=== PATIENT | male | born 1980 | race Caucasian/White ===

== ENCOUNTER 2020-09-28 10:02 | Inpatient (IN) | payer OTHER ==
[2020-09-28 10:32] VITALS: BMI 21.3
[2020-09-28] MEDS ORDERED: MAG HYDROX/AL HYDROX/SIMETH 30 ML UNIT-DOSE CUP PO PRN (11:47)
[2020-09-28] MEDS ORDERED: MENTHOL/PHENOL 1 EACH UD MM PRN (11:47)
[2020-09-28] MEDS ORDERED: IBUPROFEN 400 MG TABLET (FP) PO PRN (11:47)
[2020-09-28] MEDS ORDERED: ONDANSETRON *ODT* 4 MG TABLET SL PRN (11:47)
[2020-09-28] MEDS ORDERED: NICOTINE POLACRILEX 2 MG GUM BUC PRN (11:47)
[2020-09-28] MEDS ORDERED: BISMUTH SUBSALICYLATE 262 MG/15 ML BTL PO PRN (11:47)
[2020-09-28] MEDS ORDERED: LORazepam 1 MG TABLET PO PRN (11:47)
[2020-09-28] MEDS ORDERED: MAGNESIUM HYDROX 2400MG/30ML ORAL SUSPENSION 30 ML CUP PO PRN (11:47)
[2020-09-28] MEDS ORDERED: MAGNESIUM CITRATE 300 ML BOTTLE PO PRN (11:47)
[2020-09-28] MEDS ORDERED: ACETAMINOPHEN 325 MG TABLET (FP) PO PRN ×2 (11:47)
[2020-09-28] MEDS ORDERED: METHOCARBAMOL 500 MG TABLET PO PRN (11:47)
[2020-09-28] MEDS: NICOTINE 14 MG/24 HOURS TOPICAL PATCH TD SCH (12:43)
[2020-09-28] MEDS ORDERED: MELATONIN 5 MG TABLETS PO PRN (13:54)
[2020-09-28] MEDS ORDERED: PATIENT'S OWN MEDICATION (NON-FORMULARY) (Gabapentin [Neurontin] 600 MG Tablet) PO SCH (14:00)
[2020-09-28] MEDS: GABAPENTIN 400 MG CAPSULE PO SCH ×2 (14:24→22:14)
[2020-09-28] MEDS: hydrOXYzine PAMOATE 25 MG CAPSULE (FP) PO SCH ×3 (14:36→22:14)
[2020-09-28 14:47] LABS: HEMOGLOBIN 14.5 GM/dL (11.7-16.9); MCH 31.7 pg (25.7-33.7); MCHC 33.9 g/dl (32.0-35.9); MEAN CELL VOLUME 93.7 fl (80-96); MEAN PLT VOLUME 8.8 fl (7.5-11.1); PLATELET COUNT 265 K/MM3 (134-434); RBC 4.58 M/mm3 (4.00-5.60); RDW 13.2 % (11.9-15.9); WHITE BLOOD COUNT 6.3 K/mm3 (4.0-10.0)
[2020-09-28 14:51] LABS: POTASSIUM 4.9 mmol/L (3.5-5.1)
[2020-09-28 14:53] LABS: ALBUMIN 4.2 g/dl (3.4-5.0); BLOOD UREA NITROGEN 17.8 mg/dL (7-18); CALCIUM 9.5 mg/dL (8.5-10.1)
[2020-09-28 14:56] LABS: CREATININE 1.1 mg/dL (0.55-1.3)
[2020-09-28 14:58] LABS: BILIRUBIN,TOTAL 0.3 mg/dL (0.2-1); TOT PROT 7.2 g/dl (6.4-8.2)
[2020-09-28 15:44] LABS: SYPHILIS W/ RPR CONF NON-REACTIVE (NONREACTIVE)
[2020-09-28 15:47] LABS: HIV INTERPRETATION NEGATIVE (NEGATIVE)
[2020-09-28] MEDS: LORazepam 2 MG TABLET PO SCH ×2 (17:21→22:14)
[2020-09-28] MEDS ORDERED: MELATONIN 5 MG TABLETS PO SCH (22:00)
[2020-09-28] MEDS: THIAMINE HCL 100 MG TABLET (FP) PO SCH (22:14)
[2020-09-29] MEDS: hydrOXYzine PAMOATE 25 MG CAPSULE (FP) PO SCH ×5 (07:32→23:30)
[2020-09-29] MEDS: LORazepam 2 MG TABLET PO SCH ×4 (07:32→23:30)
[2020-09-29] MEDS: GABAPENTIN 400 MG CAPSULE PO SCH ×3 (07:32→23:30)
[2020-09-29] MEDS ORDERED: METHADONE HCL 10 MG TABLET ONE (08:57)
[2020-09-29] MEDS ORDERED: METHADONE HCL 40 MG DISPERSABLE TABLET ONE (08:59)
[2020-09-29] MEDS ORDERED: METHADONE HCL 40 MG DISPERSABLE TABLET PO SCH (10:00)
[2020-09-29] MEDS: METHADONE 80 MG, METHADONE 10 MG PO SCH (10:32)
[2020-09-29] MEDS: NICOTINE 14 MG/24 HOURS TOPICAL PATCH TD SCH (10:33)
[2020-09-29] MEDS: PRENATAL VITAMINS W/ FOLIC ACID TABLET (FP) PO SCH (11:02)
[2020-09-29] MEDS ORDERED: MASKS NR ONE (20:33)
[2020-09-29] MEDS: THIAMINE HCL 100 MG TABLET (FP) PO SCH (23:30)
[2020-09-30] MEDS: LORazepam 1 MG TABLET PO SCH ×4 (07:26→22:08)
[2020-09-30] MEDS: GABAPENTIN 400 MG CAPSULE PO SCH ×3 (07:26→22:08)
[2020-09-30] MEDS: hydrOXYzine PAMOATE 25 MG CAPSULE (FP) PO SCH ×5 (07:27→22:08)
[2020-09-30] MEDS ORDERED: METHADONE HCL 10 MG TABLET ONE (09:28)
[2020-09-30] MEDS ORDERED: METHADONE HCL 40 MG DISPERSABLE TABLET ONE (09:30)
[2020-09-30] MEDS: METHADONE 80 MG, METHADONE 10 MG PO SCH (09:31)
[2020-09-30] MEDS: NICOTINE 14 MG/24 HOURS TOPICAL PATCH TD SCH (10:25)
[2020-09-30] MEDS: PRENATAL VITAMINS W/ FOLIC ACID TABLET (FP) PO SCH (10:25)
[2020-09-30] MEDS: THIAMINE HCL 100 MG TABLET (FP) PO SCH (22:08)
[2020-10-01] MEDS ORDERED: LORazepam 0.5 MG TABLET PO PRN
[2020-10-01] MEDS ORDERED: METHADONE HCL 10 MG TABLET ONE (04:09)
[2020-10-01] MEDS ORDERED: METHADONE HCL 40 MG DISPERSABLE TABLET ONE (04:09)
[2020-10-01] MEDS: METHADONE 80 MG, METHADONE 10 MG PO SCH (05:35)
[2020-10-01] MEDS: hydrOXYzine PAMOATE 25 MG CAPSULE (FP) PO SCH ×5 (05:35→22:02)
[2020-10-01] MEDS: GABAPENTIN 400 MG CAPSULE PO SCH ×3 (05:35→22:02)
[2020-10-01] MEDS: LORazepam 0.5 MG TABLET PO SCH ×4 (05:36→22:02)
[2020-10-01] MEDS: PRENATAL VITAMINS W/ FOLIC ACID TABLET (FP) PO SCH (10:05)
[2020-10-01] MEDS: NICOTINE 14 MG/24 HOURS TOPICAL PATCH TD SCH (10:05)
[2020-10-01] MEDS: THIAMINE HCL 100 MG TABLET (FP) PO SCH (22:02)
[2020-10-02] MEDS ORDERED: METHADONE HCL 10 MG TABLET ONE (03:21)
[2020-10-02] MEDS ORDERED: METHADONE HCL 40 MG DISPERSABLE TABLET ONE (03:21)
[2020-10-02] MEDS ORDERED: LORazepam 0.5 MG TABLET PO ONE (05:00)
[2020-10-02] MEDS: METHADONE 80 MG, METHADONE 10 MG PO SCH (06:48)
[2020-10-02] MEDS: GABAPENTIN 400 MG CAPSULE PO SCH ×2 (06:49→13:48)
[2020-10-02] MEDS: hydrOXYzine PAMOATE 25 MG CAPSULE (FP) PO SCH ×4 (06:49→17:40)
[2020-10-02] MEDS: NICOTINE 14 MG/24 HOURS TOPICAL PATCH TD SCH (10:21)
[2020-10-02] MEDS: PRENATAL VITAMINS W/ FOLIC ACID TABLET (FP) PO SCH (10:21)
[2020-10-02 17:26] VITALS: BP 117/63; PULSE 58; TEMP 97.5
== END 2020-10-02 18:03 | disposition other institution (70) | DRG 773 ==
LOC: YASAS 10:02 → Y6N 11:15
PROVIDERS: ADMIT Allergy & Immunology; ATTEND Allergy & Immunology
PROC: HZ2ZZZZ Detoxification Services for Substance Abuse Treatment (ICD-10-PCS; principal; 2020-09-28)
DX: F10.230 Alcohol dependence with withdrawal, uncomplicated (principal); F11.20 Opioid dependence, uncomplicated; F14.20 Cocaine dependence, uncomplicated; F12.20 Cannabis dependence, uncomplicated; F17.210 Nicotine dependence, cigarettes, uncomplicated; F90.9 Attention-deficit hyperactivity disorder, unspecified type; F19.280 Other psychoactive substance dependence with psychoactive substance-induced anxiety disorder; F19.282 Other psychoactive substance dependence with psychoactive substance-induced sleep disorder; F42.4 Excoriation (skin-picking) disorder; M54.5 Low back pain; G89.29 Other chronic pain
CPT/HCPCS: 36415; 80053; 85027; 86780; 87389; 93005; 93010; C9803; U0003

== ENCOUNTER 2020-10-02 18:12 | Inpatient (IN) | payer OTHER ==
[2020-10-02] MEDS ORDERED: MAG HYDROX/AL HYDROX/SIMETH 30 ML UNIT-DOSE CUP PO PRN (20:16)
[2020-10-02] MEDS ORDERED: NICOTINE POLACRILEX 2 MG GUM BUC PRN (20:16)
[2020-10-02] MEDS ORDERED: IBUPROFEN 400 MG TABLET (FP) PO PRN (20:16)
[2020-10-02] MEDS ORDERED: LOPERAMIDE HCL 2 MG CAPSULE PO PRN (20:16)
[2020-10-02] MEDS ORDERED: hydrOXYzine PAMOATE 25 MG CAPSULE (FP) PO PRN (20:16)
[2020-10-02] MEDS ORDERED: MENTHOL/PHENOL 1 EACH UD MM PRN (20:16)
[2020-10-02] MEDS ORDERED: P-EPHED 60MG/TRIPROLIDI 2.5MG TABLET PO PRN (20:16)
[2020-10-02] MEDS ORDERED: ACETAMINOPHEN 325 MG TABLET (FP) PO PRN (20:16)
[2020-10-02] MEDS ORDERED: MAGNESIUM CITRATE 300 ML BOTTLE PO PRN (20:16)
[2020-10-02] MEDS ORDERED: guaiFENesin 200 MG/10 ML 10 ML UNIT-DOSE CUPS PO PRN (20:16)
[2020-10-02] MEDS ORDERED: MAGNESIUM HYDROX 2400MG/30ML ORAL SUSPENSION 30 ML CUP PO PRN (20:16)
[2020-10-02] MEDS ORDERED: MELATONIN 5 MG TABLETS PO PRN (22:00)
[2020-10-02] MEDS ORDERED: THIAMINE HCL 100 MG TABLET (FP) PO SCH (22:00)
[2020-10-02] MEDS ORDERED: MELATONIN 5 MG TABLETS PO SCH (22:00)
[2020-10-03] MEDS ORDERED: METHADONE HCL 40 MG DISPERSABLE TABLET ONE (04:54)
[2020-10-03] MEDS ORDERED: METHADONE HCL 10 MG TABLET ONE (04:55)
[2020-10-03] MEDS ORDERED: METHADONE 80 MG, METHADONE 10 MG PO SCH (06:00)
[2020-10-03 08:39] VITALS: BP 129/65; PULSE 56; TEMP 97.1
[2020-10-03] MEDS ORDERED: NICOTINE 14 MG/24 HOURS TOPICAL PATCH TD SCH (10:00)
[2020-10-03] MEDS ORDERED: METHADONE HCL 40 MG DISPERSABLE TABLET PO SCH (10:00)
[2020-10-03] MEDS ORDERED: PRENATAL VITAMINS W/ FOLIC ACID TABLET (FP) PO SCH (10:00)
== END 2020-10-03 10:30 | disposition left against medical advice (07) | DRG 770 ==
LOC: YASAS 18:12 → Y3W 18:13
PROVIDERS: ADMIT Allergy & Immunology; ATTEND Allergy & Immunology
PROC: HZ42ZZZ Group Counseling for Substance Abuse Treatment, Cognitive-Behavioral (ICD-10-PCS; principal; 2020-10-02)
DX: F10.20 Alcohol dependence, uncomplicated (principal); F11.20 Opioid dependence, uncomplicated; F14.20 Cocaine dependence, uncomplicated; F12.20 Cannabis dependence, uncomplicated; F17.210 Nicotine dependence, cigarettes, uncomplicated; F41.1 Generalized anxiety disorder; M54.5 Low back pain; G89.29 Other chronic pain

== ENCOUNTER 2021-04-28 22:56 | Inpatient (IN) | payer OTHER ==
[2021-04-28 20:24] VITALS: BMI 21.4
[~2021-04-28 22:56] MED LIST: ACETAMINOPHEN 325 MG TABLET (FP) PO PRN; IBUPROFEN 400 MG TABLET (FP) PO PRN; LOPERAMIDE HCL 2 MG CAPSULE PO PRN; MAG HYDROX/AL HYDROX/SIMETH 30 ML UNIT-DOSE CUP PO PRN; MAGNESIUM CITRATE 300 ML BOTTLE PO PRN; MAGNESIUM HYDROX 2400MG/30ML ORAL SUSPENSION 30 ML CUP PO PRN; P-EPHED 60MG/TRIPROLIDI 2.5MG TABLET PO PRN; guaiFENesin 200 MG/10 ML 10 ML UNIT-DOSE CUPS PO PRN
[2021-04-29] MEDS: THIAMINE HCL 100 MG TABLET (FP) PO SCH ×2 (02:00→21:40)
[2021-04-29] MEDS: MELATONIN 5 MG TABLETS PO SCH ×2 (02:00→21:06)
[2021-04-29] MEDS: hydrOXYzine PAMOATE 25 MG CAPSULE (FP) PO SCH ×6 (02:00→21:06)
[2021-04-29] MEDS ORDERED: methaDONE HCL 10 MG TABLET PO SCH (09:30)
[2021-04-29] MEDS: PRENATAL VITAMINS W/ FOLIC ACID TABLET (FP) PO SCH (09:38)
[2021-04-29] MEDS: NICOTINE 7 MG/24 HOURS TOPICAL PATCH TD SCH (09:38)
[2021-04-29] MEDS ORDERED: methaDONE HCL 40 MG DISPERSABLE TABLET ONE (10:16)
[2021-04-29] MEDS ORDERED: methaDONE HCL 10 MG TABLET ONE (10:16)
[2021-04-29] MEDS: methaDONE 80 MG, methaDONE 10 MG PO SCH (10:28)
[2021-04-29] MEDS ORDERED: methaDONE 40 MG, methaDONE 30 MG PO SCH (10:30)
[2021-04-29 13:33] LABS: PH,URINE 6.5 (5.0-8.0); URINE APPEARANCE CLEAR; URINE BILIRUBIN NEGATIVE (NEGATIVE); URINE COLOR YELLOW; URINE GLUCOSE (UA) NEGATIVE (NEGATIVE); URINE KETONE NEGATIVE (NEGATIVE); URINE LEUK ESTERASE NEGATIVE (NEGATIVE); URINE NITRITE NEGATIVE (NEGATIVE); URINE PROTEIN NEGATIVE (NEGATIVE); URINE UROBILINOGEN 0.2 mg/dL (0.2-1.0)
[2021-04-29] MEDS ORDERED: MASKS NR ONE (17:55)
[2021-04-29] MEDS: GABAPENTIN 300 MG CAPSULE PO SCH (21:05)
[2021-04-30] MEDS ORDERED: methaDONE HCL 40 MG DISPERSABLE TABLET ONE (03:13)
[2021-04-30] MEDS ORDERED: methaDONE HCL 10 MG TABLET ONE (03:14)
[2021-04-30] MEDS: methaDONE 80 MG, methaDONE 10 MG PO SCH (06:42)
[2021-04-30] MEDS: hydrOXYzine PAMOATE 25 MG CAPSULE (FP) PO SCH ×5 (06:43→21:13)
[2021-04-30] MEDS: GABAPENTIN 300 MG CAPSULE PO SCH ×3 (06:43→21:12)
[2021-04-30] MEDS: NICOTINE POLACRILEX 2 MG GUM BC PRN (08:22)
[2021-04-30] MEDS: PRENATAL VITAMINS W/ FOLIC ACID TABLET (FP) PO SCH (10:00)
[2021-04-30] MEDS: NICOTINE 7 MG/24 HOURS TOPICAL PATCH TD SCH (10:00)
[2021-04-30 15:00] LABS: HEMATOCRIT 38.4 % (35.4-49); MCH 31.7 pg (25.7-33.7); MCHC 33.8 g/dl (32.0-35.9); MEAN CELL VOLUME 93.8 fl (80-96); MEAN PLT VOLUME 8.1 fl (7.5-11.1); PLATELET COUNT 346 10^3/uL (134-434); RDW 13.3 % (11.9-15.9); WHITE BLOOD COUNT 5.7 K/mm3 (4.0-10.0)
[2021-04-30 15:09] LABS: ALBUMIN 3.1 g/dl (3.4-5.0); BLOOD UREA NITROGEN 20.5 mg/dL (7-18)
[2021-04-30 15:13] LABS: CREATININE 0.9 mg/dL (0.55-1.3)
[2021-04-30 15:14] LABS: BILIRUBIN,TOTAL 0.2 mg/dL (0.2-1); TOT PROT 6.4 g/dl (6.4-8.2)
[2021-04-30] MEDS: THIAMINE HCL 100 MG TABLET (FP) PO SCH (21:12)
[2021-04-30] MEDS: MELATONIN 5 MG TABLETS PO SCH (21:13)
[2021-05-01] MEDS ORDERED: methaDONE HCL 40 MG DISPERSABLE TABLET ONE (03:12)
[2021-05-01] MEDS ORDERED: methaDONE HCL 10 MG TABLET ONE (03:13)
[2021-05-01] MEDS: methaDONE 80 MG, methaDONE 10 MG PO SCH (06:52)
[2021-05-01] MEDS: hydrOXYzine PAMOATE 25 MG CAPSULE (FP) PO SCH ×5 (06:52→21:40)
[2021-05-01] MEDS: GABAPENTIN 300 MG CAPSULE PO SCH ×3 (06:52→21:39)
[2021-05-01] MEDS: PRENATAL VITAMINS W/ FOLIC ACID TABLET (FP) PO SCH (09:58)
[2021-05-01] MEDS: NICOTINE 7 MG/24 HOURS TOPICAL PATCH TD SCH (09:59)
[2021-05-01] MEDS: METHOCARBAMOL 500 MG TABLET PO SCH ×2 (14:42→21:40)
[2021-05-01] MEDS: THIAMINE HCL 100 MG TABLET (FP) PO SCH (21:40)
[2021-05-01] MEDS: MELATONIN 5 MG TABLETS PO SCH (21:40)
[2021-05-02] MEDS ORDERED: methaDONE HCL 10 MG TABLET ONE (03:52)
[2021-05-02] MEDS ORDERED: methaDONE HCL 40 MG DISPERSABLE TABLET ONE (03:52)
[2021-05-02] MEDS: hydrOXYzine PAMOATE 25 MG CAPSULE (FP) PO SCH ×5 (06:35→21:06)
[2021-05-02] MEDS: METHOCARBAMOL 500 MG TABLET PO SCH ×3 (06:36→21:06)
[2021-05-02] MEDS: GABAPENTIN 300 MG CAPSULE PO SCH ×3 (06:36→21:06)
[2021-05-02] MEDS: methaDONE 80 MG, methaDONE 10 MG PO SCH (06:37)
[2021-05-02] MEDS: NICOTINE 7 MG/24 HOURS TOPICAL PATCH TD SCH (10:20)
[2021-05-02] MEDS: PRENATAL VITAMINS W/ FOLIC ACID TABLET (FP) PO SCH (10:20)
[2021-05-02] MEDS: LIDOCAINE 5% TOPICAL PATCH TP SCH (15:39)
[2021-05-02] MEDS: MELATONIN 5 MG TABLETS PO SCH (21:06)
[2021-05-02] MEDS: LIDOCAINE PATCH REMOVAL MC SCH (21:07)
[2021-05-02] MEDS: THIAMINE HCL 100 MG TABLET (FP) PO SCH (21:07)
[2021-05-03] MEDS ORDERED: methaDONE HCL 40 MG DISPERSABLE TABLET ONE (03:10)
[2021-05-03] MEDS ORDERED: methaDONE HCL 10 MG TABLET ONE (03:11)
[2021-05-03] MEDS: methaDONE 80 MG, methaDONE 10 MG PO SCH (07:00)
[2021-05-03] MEDS: GABAPENTIN 300 MG CAPSULE PO SCH ×3 (07:00→21:34)
[2021-05-03] MEDS: METHOCARBAMOL 500 MG TABLET PO SCH ×3 (07:00→21:34)
[2021-05-03] MEDS: hydrOXYzine PAMOATE 25 MG CAPSULE (FP) PO SCH ×5 (07:00→21:34)
[2021-05-03] MEDS: NICOTINE 7 MG/24 HOURS TOPICAL PATCH TD SCH (10:06)
[2021-05-03] MEDS: LIDOCAINE 5% TOPICAL PATCH TP SCH (10:06)
[2021-05-03] MEDS: PRENATAL VITAMINS W/ FOLIC ACID TABLET (FP) PO SCH (10:07)
[2021-05-03] MEDS: MELATONIN 5 MG TABLETS PO SCH (21:34)
[2021-05-03] MEDS: LIDOCAINE PATCH REMOVAL MC SCH (21:35)
[2021-05-03] MEDS: THIAMINE HCL 100 MG TABLET (FP) PO SCH (21:35)
[2021-05-04] MEDS ORDERED: methaDONE HCL 40 MG DISPERSABLE TABLET ONE (03:43)
[2021-05-04] MEDS ORDERED: methaDONE HCL 10 MG TABLET ONE (03:43)
[2021-05-04] MEDS: methaDONE 80 MG, methaDONE 10 MG PO SCH (06:31)
[2021-05-04] MEDS: METHOCARBAMOL 500 MG TABLET PO SCH ×3 (06:31→21:03)
[2021-05-04] MEDS: GABAPENTIN 300 MG CAPSULE PO SCH ×3 (06:31→21:03)
[2021-05-04] MEDS: hydrOXYzine PAMOATE 25 MG CAPSULE (FP) PO SCH ×5 (06:32→21:02)
[2021-05-04] MEDS: PRENATAL VITAMINS W/ FOLIC ACID TABLET (FP) PO SCH (09:52)
[2021-05-04] MEDS: NICOTINE POLACRILEX 2 MG GUM BC PRN (09:53)
[2021-05-04] MEDS: LIDOCAINE 5% TOPICAL PATCH TP SCH (09:53)
[2021-05-04] MEDS: NICOTINE 7 MG/24 HOURS TOPICAL PATCH TD SCH (09:53)
[2021-05-04] MEDS: THIAMINE HCL 100 MG TABLET (FP) PO SCH (21:02)
[2021-05-04] MEDS: MELATONIN 5 MG TABLETS PO SCH (21:02)
[2021-05-04] MEDS: LIDOCAINE PATCH REMOVAL MC SCH (21:03)
[2021-05-05] MEDS ORDERED: methaDONE HCL 40 MG DISPERSABLE TABLET ONE (03:16)
[2021-05-05] MEDS ORDERED: methaDONE HCL 10 MG TABLET ONE (03:17)
[2021-05-05] MEDS: methaDONE 80 MG, methaDONE 10 MG PO SCH (06:19)
[2021-05-05] MEDS: hydrOXYzine PAMOATE 25 MG CAPSULE (FP) PO SCH ×5 (06:19→21:30)
[2021-05-05] MEDS: GABAPENTIN 300 MG CAPSULE PO SCH ×3 (06:19→21:30)
[2021-05-05] MEDS: METHOCARBAMOL 500 MG TABLET PO SCH ×3 (06:19→21:30)
[2021-05-05] MEDS: NICOTINE 7 MG/24 HOURS TOPICAL PATCH TD SCH (09:53)
[2021-05-05] MEDS: LIDOCAINE 5% TOPICAL PATCH TP SCH (09:53)
[2021-05-05] MEDS: PRENATAL VITAMINS W/ FOLIC ACID TABLET (FP) PO SCH (09:53)
[2021-05-05] MEDS: MELATONIN 5 MG TABLETS PO SCH (21:30)
[2021-05-05] MEDS: THIAMINE HCL 100 MG TABLET (FP) PO SCH (21:30)
[2021-05-05] MEDS: LIDOCAINE PATCH REMOVAL MC SCH (21:30)
[2021-05-05] MEDS: NICOTINE POLACRILEX 2 MG GUM BC PRN (21:31)
[2021-05-06] MEDS ORDERED: methaDONE HCL 40 MG DISPERSABLE TABLET ONE (03:03)
[2021-05-06] MEDS ORDERED: methaDONE HCL 10 MG TABLET ONE (03:04)
[2021-05-06] MEDS: methaDONE 80 MG, methaDONE 10 MG PO SCH (06:38)
[2021-05-06] MEDS: METHOCARBAMOL 500 MG TABLET PO SCH ×3 (06:38→21:10)
[2021-05-06] MEDS: GABAPENTIN 300 MG CAPSULE PO SCH ×3 (06:38→21:10)
[2021-05-06] MEDS: hydrOXYzine PAMOATE 25 MG CAPSULE (FP) PO SCH ×5 (06:39→21:10)
[2021-05-06] MEDS: NICOTINE 7 MG/24 HOURS TOPICAL PATCH TD SCH (09:27)
[2021-05-06] MEDS: PRENATAL VITAMINS W/ FOLIC ACID TABLET (FP) PO SCH (09:27)
[2021-05-06] MEDS: LIDOCAINE 5% TOPICAL PATCH TP SCH (09:27)
[2021-05-06] MEDS: NICOTINE POLACRILEX 2 MG GUM BC PRN (09:28)
[2021-05-06] MEDS: MELATONIN 5 MG TABLETS PO SCH (21:10)
[2021-05-06] MEDS: THIAMINE HCL 100 MG TABLET (FP) PO SCH (21:10)
[2021-05-06] MEDS: LIDOCAINE PATCH REMOVAL MC SCH (21:11)
[2021-05-07] MEDS ORDERED: methaDONE HCL 40 MG DISPERSABLE TABLET ONE (03:09)
[2021-05-07] MEDS ORDERED: methaDONE HCL 10 MG TABLET ONE (03:10)
[2021-05-07] MEDS: methaDONE 80 MG, methaDONE 10 MG PO SCH (06:18)
[2021-05-07] MEDS: METHOCARBAMOL 500 MG TABLET PO SCH ×3 (06:18→21:34)
[2021-05-07] MEDS: GABAPENTIN 300 MG CAPSULE PO SCH ×3 (06:18→21:34)
[2021-05-07] MEDS: hydrOXYzine PAMOATE 25 MG CAPSULE (FP) PO SCH ×5 (06:18→21:34)
[2021-05-07] MEDS: NICOTINE POLACRILEX 2 MG GUM BC PRN ×2 (09:08→15:28)
[2021-05-07] MEDS: LIDOCAINE 5% TOPICAL PATCH TP SCH (10:04)
[2021-05-07] MEDS: PRENATAL VITAMINS W/ FOLIC ACID TABLET (FP) PO SCH (10:04)
[2021-05-07] MEDS: NICOTINE 7 MG/24 HOURS TOPICAL PATCH TD SCH (10:04)
[2021-05-07] MEDS: MELATONIN 5 MG TABLETS PO SCH (21:34)
[2021-05-07] MEDS: THIAMINE HCL 100 MG TABLET (FP) PO SCH (21:34)
[2021-05-07] MEDS: LIDOCAINE PATCH REMOVAL MC SCH (21:35)
[2021-05-08] MEDS ORDERED: methaDONE HCL 10 MG TABLET ONE (03:38)
[2021-05-08] MEDS ORDERED: methaDONE HCL 40 MG DISPERSABLE TABLET ONE (03:38)
[2021-05-08] MEDS: GABAPENTIN 300 MG CAPSULE PO SCH ×3 (07:03→21:02)
[2021-05-08] MEDS: METHOCARBAMOL 500 MG TABLET PO SCH ×3 (07:03→21:02)
[2021-05-08] MEDS: methaDONE 80 MG, methaDONE 10 MG PO SCH (07:03)
[2021-05-08] MEDS: hydrOXYzine PAMOATE 25 MG CAPSULE (FP) PO SCH ×5 (07:04→21:02)
[2021-05-08] MEDS: LIDOCAINE 5% TOPICAL PATCH TP SCH (09:24)
[2021-05-08] MEDS: NICOTINE 7 MG/24 HOURS TOPICAL PATCH TD SCH (09:24)
[2021-05-08] MEDS: PRENATAL VITAMINS W/ FOLIC ACID TABLET (FP) PO SCH (09:24)
[2021-05-08] MEDS: NICOTINE POLACRILEX 2 MG GUM BC PRN (09:25)
[2021-05-08] MEDS: THIAMINE HCL 100 MG TABLET (FP) PO SCH (21:01)
[2021-05-08] MEDS: MELATONIN 5 MG TABLETS PO SCH (21:01)
[2021-05-08] MEDS: LIDOCAINE PATCH REMOVAL MC SCH (21:02)
[2021-05-09] MEDS ORDERED: methaDONE HCL 10 MG TABLET ONE (03:19)
[2021-05-09] MEDS ORDERED: methaDONE HCL 40 MG DISPERSABLE TABLET ONE (03:19)
[2021-05-09] MEDS: GABAPENTIN 300 MG CAPSULE PO SCH ×3 (06:24→21:28)
[2021-05-09] MEDS: hydrOXYzine PAMOATE 25 MG CAPSULE (FP) PO SCH ×5 (06:24→21:28)
[2021-05-09] MEDS: METHOCARBAMOL 500 MG TABLET PO SCH ×3 (06:24→21:28)
[2021-05-09] MEDS: methaDONE 80 MG, methaDONE 10 MG PO SCH (06:24)
[2021-05-09] MEDS: LIDOCAINE 5% TOPICAL PATCH TP SCH (09:54)
[2021-05-09] MEDS: PRENATAL VITAMINS W/ FOLIC ACID TABLET (FP) PO SCH (09:54)
[2021-05-09] MEDS: NICOTINE 14 MG/24 HOURS TOPICAL PATCH TD SCH (09:54)
[2021-05-09] MEDS: NICOTINE POLACRILEX 2 MG GUM BC PRN (14:28)
[2021-05-09] MEDS: THIAMINE HCL 100 MG TABLET (FP) PO SCH (21:27)
[2021-05-09] MEDS: MELATONIN 5 MG TABLETS PO SCH (21:28)
[2021-05-09] MEDS: LIDOCAINE PATCH REMOVAL MC SCH (21:29)
[2021-05-10] MEDS ORDERED: methaDONE HCL 40 MG DISPERSABLE TABLET ONE (03:17)
[2021-05-10] MEDS ORDERED: methaDONE HCL 10 MG TABLET ONE (03:17)
[2021-05-10] MEDS: GABAPENTIN 300 MG CAPSULE PO SCH (06:22)
[2021-05-10] MEDS: hydrOXYzine PAMOATE 25 MG CAPSULE (FP) PO SCH ×2 (06:22→09:15)
[2021-05-10] MEDS: methaDONE 80 MG, methaDONE 10 MG PO SCH (06:22)
[2021-05-10] MEDS: METHOCARBAMOL 500 MG TABLET PO SCH (06:22)
[2021-05-10 06:58] VITALS: BP 106/73; PULSE 53; TEMP 97.7
[2021-05-10] MEDS: LIDOCAINE 5% TOPICAL PATCH TP SCH (09:14)
[2021-05-10] MEDS: PRENATAL VITAMINS W/ FOLIC ACID TABLET (FP) PO SCH (09:15)
[2021-05-10] MEDS: NICOTINE 14 MG/24 HOURS TOPICAL PATCH TD SCH (09:16)
== END 2021-05-10 09:35 | disposition home or self-care (01) | DRG 772 ==
LOC: YASAS 22:56 → Y3W 04-29 01:11
PROVIDERS: ADMIT Allergy & Immunology; ATTEND Allergy & Immunology
PROC: HZ42ZZZ Group Counseling for Substance Abuse Treatment, Cognitive-Behavioral (ICD-10-PCS; principal; 2021-04-29)
DX: F11.20 Opioid dependence, uncomplicated (principal); F14.20 Cocaine dependence, uncomplicated; F12.20 Cannabis dependence, uncomplicated; F17.210 Nicotine dependence, cigarettes, uncomplicated; M54.5 Low back pain; G89.29 Other chronic pain; Z56.0 Unemployment, unspecified
CPT/HCPCS: 36415; 80053; 81003; 85027; 86780; C9803; U0003; U0005